=== PATIENT | male | born 1985 | race Caucasian/White ===

== ENCOUNTER 2018-02-01 14:35 | Emergency (ER) | payer OTHER, SELFPAY ==
[2018-02-01 14:46] VITALS: BP 129/80; PULSE 83; RESP 18; TEMP 36.6; O2SAT 99; BMI 33.2
--- NOTE | 2018-02-01 15:08 | ED.WOUNDLAC ---
HPI - Wound/Laceration <CHUNG Manning - Last Filed: 02/01/18 21:18> General Chief Complaint: Wound/Laceration Stated Complaint: HAND STABBED WITH FIBERGLASS Time Seen by Provider: 02/01/18 15:15 Source: patient Mode of arrival: ambulatory Limitations: no limitations History of Present Illness HPI narrative: 32-year-old healthy male that is a nonsmoker here for complaint of having puncture to his right palm yesterday. He states that a thin piece of fiberglass punctured his right palm area He believes that he got the fiberglass out. He states that his tetanus is up-to-date. He reports reports full range of motion of the right hand. He reports mild tenderness to the area today. He denies any other injuries or concerns at this time. Review of Systems <CHUNG Manning - Last Filed: 02/01/18 21:18> Constitutional Denies chills, Denies fever(s), Denies lethargy and Denies weakness Eyes Denies change in vision, Denies eye discharge, Denies irritation and Denies loss of vision Cardiovascular Denies chest pain, Denies irregular heart rhythm, Denies lightheadedness, Denies palpitations, Denies dyspnea, Denies dyspnea on exertion and Denies orthopnea Respiratory Denies cough, Denies dyspnea, Denies dyspnea on exertion and Denies wheezing Gastrointestinal Gastrointestinal: Denies abdominal pain, Denies change in bowel habits, Denies diarrhea, Denies nausea and Denies vomiting Genitourinary Denies hematuria, Denies flank pain, Denies urinary incontinence and Denies urinary urgency Musculoskeletal Comments: Puncture a to right palm by piece of fibrillar Integumentary/Breasts Denies pruritus, Denies erythema, Denies rash and Denies wounds Neurologic Denies confusion, Denies loss of vision and Denies weakness Psychiatric Denies anxiety, Denies confusion, Denies depression, Denies homicidal ideation and Denies suicidal ideation Endocrine Denies palpitations Allergic/Immunologic Denies wheezing Exam <CHUNG Manning - Last Filed: 02/01/18 21:18> Initial Vital Signs Initial Vital Signs: Vital Signs Temperature 97.8 F 02/01/18 14:46 Pulse Rate 83 02/01/18 14:46 Respiratory Rate 18 02/01/18 14:46 Blood Pressure 129/80 02/01/18 14:46 Pulse Oximetry 99 02/01/18 14:46 Const General: cooperative and well developed Nutritional Appearance: well nourished Orientation: alert, awake, oriented x3 and not confused HENME Mouth: oral mucosae normal and moist mucous membranes Eyes Conjunctivae: conjunctivae normal Sclera: sclerae normal Pupils: PERRL EOM: EOM intact bilaterally Resp Effort & Inspection: normal respiratory effort, able to speak in complete sentences, no respiratory distress and no use of accessory muscles Auscultation: clear to auscultation bilaterally, no rales, no rhonchi and no wheezes Cardio Rate: regular rate Rhythm: regular rhythm Heart Sounds: no click, no gallops, no murmurs and no rubs Pulses: normal peripheral pulses Skin General: no rashes or lesions noted, No jaundice and No petechiae Neuro General: alert, oriented x3, gait normal and no focal motor deficits Speech: speech normal Extrem Other: small approximately 3 mm circular red area to the right palm area Just proximal to the right thumb. No surrounding erythema. No swelling. distal sensation is intact. Full range of motion of the right hand. No foreign body appreciated. Distal cap refill less than 2 sec. <Deanna Taylor DO - Last Filed: 02/02/18 08:27> Initial Vital Signs Initial Vital Signs: Vital Signs Temperature 97.8 F 02/01/18 14:46 Pulse Rate 83 02/01/18 14:46 Respiratory Rate 18 02/01/18 14:46 Blood Pressure 129/80 02/01/18 14:46 Pulse Oximetry 99 02/01/18 14:46 Course <CHUNG Manning - Last Filed: 02/01/18 21:18> Orders Ordered: ED Orders 02/01/18 15:15 XR hand RT min 3V Stat Vital Signs - 8 hr 02/01/18 14:46 02/01/18 16:48 Temperature 97.8 F Pulse Rate 83 88 Respiratory Rate 18 14 Blood Pressure 129/80 Blood Pressure [Right Arm] 120/78 Pulse Oximetry 99 96 <Deanna Taylor DO - Last Filed: 02/02/18 08:27> Orders Ordered: ED Orders 02/01/18 15:15 XR hand RT min 3V Stat Vital Signs - 8 hr 02/01/18 14:46 02/01/18 16:48 Temperature 97.8 F Pulse Rate 83 88 Respiratory Rate 18 14 Blood Pressure 129/80 Blood Pressure [Right Arm] 120/78 Pulse Oximetry 99 96 MDM - Wound/Laceration <CHUNG Manning - Last Filed: 02/01/18 21:18> Imaging Data Right hand : Radiologist's impression: [address] [address] XRay Report Signed Patient: DINA PADILLA RMR#: [id number] : 1985Acct:[id number] Age/Sex: 32 / MDate of Service: 02/01/18 Loc: ED Accession Number: [id number] Procedure: XR hand RT min 3V Ordering Provider: Mir Galarza PROCEDURE: XR HAND RT MIN 3V INDICATIONS: puncture right palmar area thin long fiberglass piece TECHNIQUE: 3 views of the hand(s) acquired. COMPARISON: None. FINDINGS: Bones: There is a 5 mm density projecting along the surface of the skin of the distal right middle finger. Trace curvilinear densities projecting along the index finger nail No fractures or dislocations. Carpal bones are normally aligned. No suspicious bony lesions. Soft tissues: No suspicious soft tissue calcifications. IMPRESSION: Possible foreign body projected along the dorsal aspect of the distal right middle finger measuring 5 mm. Differential includes age indeterminate cortical fracture fragment however no donor site is identified. Please correlate clinically. No radiopaque foreign body projecting in the palmar soft tissues. Dictated by: Harlan Taylor M.D. on 02/01/2018 at 15:53 Approved by: Harlan Taylor M.D. on 02/01/2018 at 15:56 [facility] Narrative Medical decision making narrative: x-ray the right hand was obtained was negative for any radiopaque bodies. No foreign bodies appreciated on exam. Patient has full range of motion no signs of infection. Patient states tetanus is up-to-date.Follow up with primary care provider later this week for re-evaluation. For any worsening symptoms return to the emergency room. Discharge Plan Departure Patient Disposition: Home Clinical Impression: Puncture wound of right palm Discharge Date/Time: 02/01/18 16:52 Interventions: ED Discharge Assessment Last Done: 02/01/18 16:51 Instructions: DI for Hand Injury Activity Restrictions/Additional Instructions: x-ray the right hand was obtained was negative for any foreign body seen. no signs of infection are appreciated on exam. Use [id number] Tylenol or Motrin as needed for any discomfort. Follow up with primary care provider later this week for re-evaluation. For any worsening symptoms return to the emergency room. Referrals: [facility] [Provider Group] <Deanna Taylor, - Last Filed: 02/02/18 08:27> Cosign ED Attending Constanceature Attestation: I was immediately available in the department for consultation. Documentation has been reviewed. I agree with assessment and plan.
--- NOTE | 2018-02-01 15:15 | DI.RAD.S_ITS ---
PROCEDURE: XR HAND RT MIN 3V INDICATIONS: puncture right palmar area thin long fiberglass piece TECHNIQUE: 3 views of the hand(s) acquired. COMPARISON: None. FINDINGS: Bones: There is a 5 mm density projecting along the surface of the skin of the distal right middle finger. Trace curvilinear densities projecting along the index finger nail No fractures or dislocations. Carpal bones are normally aligned. No suspicious bony lesions. Soft tissues: No suspicious soft tissue calcifications. IMPRESSION: Possible foreign body projected along the dorsal aspect of the distal right middle finger measuring 5 mm. Differential includes age indeterminate cortical fracture fragment however no donor site is identified. Please correlate clinically. No radiopaque foreign body projecting in the palmar soft tissues. Dictated by: Harlan Taylor M.D. on 02/01/2018 at 15:53 Approved by: Harlan Taylor M.D. on 02/01/2018 at 15:56
[2018-02-01 16:48] VITALS: BP 120/78; PULSE 88; RESP 14; O2SAT 96
== END 2018-02-01 16:52 | disposition home or self-care (01) ==
PROVIDERS: Emergency Provider Nurse Practitioner Family
DX: S61.431A Puncture wound without foreign body of right hand, initial encounter (principal); W26.9XXA Contact with unspecified sharp object(s), initial encounter
CPT/HCPCS: 73130; 99283

== ENCOUNTER 2018-02-05 18:28 | Emergency (ER) | payer OTHER, SELFPAY ==
[2018-02-05 18:32] VITALS: BP 120/78; PULSE 85; RESP 14; TEMP 36.3; O2SAT 98; BMI 32.6
--- NOTE | 2018-02-05 19:25 | DI.RAD.S_ITS ---
PROCEDURE: XR CHEST 2V INDICATIONS: soa, rt lower rib pain after workout TECHNIQUE: 2 views of the chest were acquired. COMPARISON: None. FINDINGS: Surgical changes and devices: None. Lungs and pleura: No pleural effusions or pneumothorax. Lungs are clear. Mediastinum: Mediastinal contours are normal. Heart size is normal. Bones and chest wall: No suspicious bony abnormalities. Soft tissues appear unremarkable. IMPRESSION: No acute cardiopulmonary disease process. Dictated by: Gabi Pearce MD, PhD on 02/05/2018 at 20:28 Approved by: Gabi Pearce MD, PhD on 02/05/2018 at 20:29
--- NOTE | 2018-02-05 19:33 | PC.NURSE ---
sudden rt lower chest/rib pain with can't take a full breath while doing pushups this AM, mildly improved since that time, tender to palp, lungs clear/equal, speaking in full sentences
--- NOTE | 2018-02-05 20:55 | ED_ITS ---
HPI - Chest Pain <ELIAN Rachel-BC - Last Filed: 02/05/18 21:32> General Chief Complaint: Chest Pain Stated Complaint: lungs hurt after doing [place] PRT Time Seen by Provider: 02/05/18 19:51 Source: patient Mode of arrival: ambulatory Limitations: no limitations History of Present Illness HPI narrative: Patient presents with chief complaint stating that his lungs hurt after doing pushups for [employer] PRT. He states he started having pain upon taking deep breaths after doing the pushups. He states it is right-sided in the lower part of his ribs. He denies any shortness of breath but states that it hurts to take a deep breath. He denies any substernal chest pain, lightheadedness, dizziness. He states this happened at 8:30 a.m. but he was able to come to the emergency department till now. He has not taken ibuprofen, Tylenol applied ice or heat. He states he is also concerned that his had a lung virus 5 ago when she is still feeling the effects of it so he wants to make sure he does not have it. He denies any cough, shortness of breath, hemoptysis, abdominal pain nausea vomiting or diarrhea. He denies any fever. Related Data Home Medications Medication Instructions Recorded Confirmed No Known Home Medications 02/05/18 02/05/18 Allergies Allergy/AdvReac Type Severity Reaction Status Date / Time No Known Drug Allergies Allergy Verified 02/05/18 18:34 Review of Systems <ELIAN Rachel- - Last Filed: 02/05/18 21:32> Review of Systems GENERAL: Denies chills, fatigue, malaise, fever, sweats. HEENT: Denies sinus pain, ear pain, sore throat, difficulty swallowing, dizziness. RESPIRATORY: See HPI CARDIOVASCULAR: Denies chest pain, palpitations, orthopnea, edema, GASTROINTESTINAL: Denies nausea, vomiting, abdominal pain, diarrhea, constipation, melena. : Denies dysuria, frequency, incontinence, hematuria, urinary retention. MUSCULOSKELETAL: denies weakness, joint pain, or bony pain SKIN: Denies rash, skin lesions, or other NEUROLOGIC: Denies weakness, headache, numbness, change in speech, confusion, seizures, incoordination. PSYCHIATRIC: No concerning psychosocial issues. 12 point review of systems is negative except for those stated above Exam <LEAH Rachel - Last Filed: 02/05/18 21:32> Narrative Exam Narrative: GENERAL: This is a well-nourished, well-developed patient, sitting on stretcher HEAD: Atraumatic. Normocephalic. No temporal or scalp tenderness. EYES: Pupils equal round and reactive. Extraocular motions intact. No scleral icterus. No injection or drainage. ENT: Nose without bleeding, purulent drainage or septal hematoma. Throat without erythema, tonsillar hypertrophy or exudate. Uvula midline. Airway patent. NECK: Trachea midline. No JVD or lymphadenopathy. Supple, nontender, no meningeal signs. CARDIOVASCULAR: Regular rate and rhythm without murmurs, gallops, or rubs. RESPIRATORY: Clear to auscultation. Breath sounds equal bilaterally. No wheezes , rales, or rhonchi. No increased respiratory effort. No cough on exam. No accessory muscle use. Patient denies pain on anterior posterior chest wall compression. He complains of pain on lateral chest wall compression and 8 lower ribs. Pain to palpation right lower ribs. GASTROINTESTINAL: Abdomen soft, non-tender, nondistended. No hepato-splenomegaly , or palpable masses. No guarding. EXTREMITIES: No clubbing, cyanosis, or edema. No joint tenderness, effusion, or edema noted. BACK: Nontender without deformity or crepitance. No flank tenderness. NEURO: AOx3. SKIN: No rash or erythema. Initial Vital Signs Initial Vital Signs: Vital Signs Temperature 97.4 F L 02/05/18 18:32 Pulse Rate 85 02/05/18 18:32 Respiratory Rate 14 02/05/18 18:32 Blood Pressure 120/78 02/05/18 18:32 Pulse Oximetry 98 02/05/18 18:32 <Ephraim Fischer DO - Last Filed: 02/05/18 22:46> Initial Vital Signs Initial Vital Signs: Vital Signs Temperature 97.4 F L 02/05/18 18:32 Pulse Rate 85 02/05/18 18:32 Respiratory Rate 14 02/05/18 18:32 Blood Pressure 120/78 02/05/18 18:32 Pulse Oximetry 98 02/05/18 18:32 Course <LEAH Rachel - Last Filed: 02/05/18 21:32> Course Narrative: I offered the patient Toradol, ibuprofen or Tylenol the patient declined. I offered to do lab work in a full cardiac rule out, but he declined. Orders Ordered: ED Orders 02/05/18 19:25 Chest [XR chest 2V] Stat Vital Signs - 8 hr 02/05/18 18:32 Temperature 97.4 F L Pulse Rate 85 Respiratory Rate 14 Blood Pressure 120/78 Pulse Oximetry 98 <Ephraim Fischer DO - Last Filed: 02/05/18 22:46> Orders Ordered: ED Orders 02/05/18 19:25 Chest [XR chest 2V] Stat Vital Signs - 8 hr 02/05/18 18:32 Temperature 97.4 F L Pulse Rate 85 Respiratory Rate 14 Blood Pressure 120/78 Pulse Oximetry 98 MDM - Chest Pain <LEAH Rachel - Last Filed: 02/05/18 21:32> Imaging Data Chest x-ray: Radiologist's impression: [address] [address] XRay Report Signed Patient: DINA PADILLA RMR#: [id number] : 1985Acct:[id number] Age/Sex: 32 / MDate of Service: 02/05/18 Loc: ED Accession Number: [id number] Procedure: XR chest 2V Ordering Provider: Birgit Traylor PROCEDURE: XR CHEST 2V INDICATIONS: soa, rt lower rib pain after workout TECHNIQUE: 2 views of the chest were acquired. COMPARISON: None. FINDINGS: Surgical changes and devices: None. Lungs and pleura: No pleural effusions or pneumothorax. Lungs are clear. Mediastinum: Mediastinal contours are normal. Heart size is normal. Bones and chest wall: No suspicious bony abnormalities. Soft tissues appear unremarkable. IMPRESSION: No acute cardiopulmonary disease process. Dictated by: Gabi Pearce MD, PhD on 02/05/2018 at 20:28 Approved by: Gabi Pearce MD, PhD on 02/05/2018 at 20:29 [facility] Narrative Medical decision making narrative: Patient presents with chief complaint of right lower ?lung pain? upon doing pushups. He has chest wall pain. He declined pain medications in Toradol in the emergency department several times. His x-ray is benign. I urged him to use conservative measures including heat , ice, [id number] pain medication as he did, able and willing. Encouraged to follow up with primary care provider for new or worsening symptoms or come back to emergency department for any acute concerns. Discharge Plan Departure Patient Disposition: Home Clinical Impression: Acute chest wall pain Discharge Date/Time: 02/05/18 21:00 Interventions: ED Discharge Assessment Last Done: 02/05/18 21:41 Instructions: DI for Atypical Chest Pain Activity Restrictions/Additional Instructions: Your chest pain does not appear cardiac. Your x-ray came back normal. I encourage you to take [id number] pain medication as needed and able. He can try ice or heat for the pain. Please continue to take deep breaths so that you do not developed a pneumonia. Please follow up with her primary care provider if needed. Prescriptions: No Action No Known Home Medications RF: 0 Referrals: [facility] [Outside] <Ephraim Fischer DO - Last Filed: 02/05/18 22:46> [facility] ED Attending Herminio Attestation: I was available for consultation during this patient's emergency department encounter
== END 2018-02-05 21:00 | disposition home or self-care (01) ==
PROVIDERS: Emergency Provider Nurse Practitioner Family
DX: R07.89 Other chest pain (principal)
CPT/HCPCS: 71046; 99282; 99283

== ENCOUNTER 2019-03-21 10:52 | Emergency (ER) | payer OTHER, SELFPAY ==
[2019-03-21 11:05] VITALS: BP 118/78; PULSE 72; RESP 12; TEMP 36.7; O2SAT 99
--- NOTE | 2019-03-21 11:12 | ED.LOWEXIN ---
HPI - Extremity Injury (Lower) General Chief Complaint: Extremity Injury, Lower Stated Complaint: Left big toe pain x2 weeks Time Seen by Provider: 03/21/19 11:00 Source: patient Mode of arrival: Ambulatory Limitations: no limitations History of Present Illness HPI Narrative: 33M nonsmoker with noncontributory medical history presents with a chief complaint of left great toe pain for 2 weeks. He states he smashed it while working 2 weeks ago, but not a very severe smash, very typical of other smashes. He complains that every few days he develops pain and swelling along the edge of his nail and he is able to express pus from this painful swollen area. He denies any worsening of symptoms but complains that it is recurrence and becoming annoying. He denies any fever chills. He has not taken any antibiotics and has had no x-rays thus far. His pain is worse with ambulation and improves with rest MD complaint: foot injury Injury: Left: toes Type of Injury: blunt Place: work Severity: mild Relieving factors: nothing Context: direct blow Other symptoms: none Related Data Previous Rx's Medication Instructions Recorded doxycycline hyclate 100 mg PO BID #20 tab 03/21/19 Allergies Allergy/AdvReac Type Severity Reaction Status Date / Time No Known Drug Allergies Allergy Verified 02/05/18 18:34 Review of Systems Constitutional Constitutional: Denies chills, Denies fatigue, Denies fever(s), Denies frequent falls, Denies lethargy and Denies weakness Eyes Eyes: Denies change in vision, Denies eye discharge, Denies irritation and Denies loss of vision ENT Ears, Nose, Mouth, and Throat: Denies change in voice, Denies dizziness, Denies neck pain, Denies sore throat and Denies throat swelling Cardiovascular Cardiovascular: Denies chest pain, Denies irregular heart rhythm, Denies lightheadedness, Denies palpitations, Denies dyspnea, Denies dyspnea on exertion and Denies orthopnea Respiratory Respiratory: Denies cough, Denies dyspnea, Denies dyspnea on exertion and Denies wheezing Gastrointestinal Gastrointestinal: Denies abdominal pain, Denies change in bowel habits, Denies diarrhea, Denies nausea and Denies vomiting Genitourinary Genitourinary: Denies hematuria, Denies flank pain, Denies urinary incontinence and Denies urinary urgency Musculoskeletal Musculoskeletal: Denies back pain, Reports joint swelling, Reports limited range of motion, Denies muscle weakness, Denies neck pain, Denies numbness and Denies tingling Integumentary/Breasts Skin/Breast: Denies pruritus, Denies erythema, Denies rash and Denies wounds Neurologic Neurologic: Denies behavioral changes, Denies confusion, Denies dizziness, Denies frequent falls, Denies loss of vision, Denies numbness, Denies tingling and Denies weakness Psychiatric Psychiatric: Denies anxiety, Denies behavioral changes, Denies confusion, Denies depression, Denies homicidal ideation and Denies suicidal ideation Endocrine Endocrine: Denies fatigue, Denies flushing and Denies palpitations Hematologic/Lymphatic Hematologic/Lymphatic: Denies easy bruising Allergic/Immunologic Allergic/Immunologic: Denies urticaria, Denies throat swelling and Denies wheezing Patient History Social History Smoking Status: Never smoker alcohol intake frequency: holidays/special occasions only Substance Use Type: does not use Exam Narrative Exam Narrative: GEN: AOx3 and in mild distress EYES: Pupils are equal, round, and reactive to light and accommodation. Extraoccular muscles are intact bilaterally. There is no subconjunctival hemorrhage or exudate. CHEST: Lungs are clear to auscultation bilaterally and free of wheezes, rales, or rhonchi. Heart rate is regular rhythm, there are no murmurs, clicks, rubs, or gallops. There is no chest wall tenderness. ABD: Abdomen is soft and nontender. There is no guarding or rebound. Bowel sounds are normal in all 4 quadrants. There is no mass or organomegaly. EXT: Full painless ROM of all extremities with no loss of sensation or strength. SKIN: paronychia or L great toe. No ongoing fluctuance or drainage. Initial Vital Signs Initial Vital Signs: Vital Signs Temperature 98.1 F 03/21/19 11:05 Pulse Rate 72 03/21/19 11:05 Respiratory Rate 12 03/21/19 11:05 Blood Pressure 118/78 03/21/19 11:05 Pulse Oximetry 99 03/21/19 11:05 Course Orders Ordered: ED Orders 03/21/19 11:16 XR toe LT min 2V Stat Vital Signs Vital signs: Vital Signs - 8 hr 03/21/19 11:05 03/21/19 12:03 Temperature 98.1 F Pulse Rate 72 79 Respiratory Rate 12 18 Blood Pressure 118/78 Pulse Oximetry 99 98 MDM - Extremity Injury (Lower) Imaging Data Toe Xray: Radiologist's impression: [address] [address] XRay Report Signed Patient: DINA PADILLA RMR#: [id number] : 1985Acct:[id number] Age/Sex: 33 / MDate of Service: 03/21/19 Loc: ED Accession Number: [id number] Procedure: XR toe LT min 2V Ordering Provider: Alexandre Gamboa D.O. PROCEDURE: XR TOE LT MIN 2V INDICATIONS: crush injury TECHNIQUE: 3 views of the left great toe were obtained. COMPARISON: None. FINDINGS: Bones: No fractures or dislocations. No suspicious bony lesions. A tattoo as navicular is present. Mild degenerative changes are noted involving the 1st metatarsophalangeal joint without associated hallux valgus. Soft tissues: No suspicious soft tissue densities. No unexpected radio opaque foreign bodies. Soft tissue swelling of the great toe appears to be present. IMPRESSION: No acute fractures of the great toe. Dictated by: Fortino Grace M.D. on 03/21/2019 at 10:34 Approved by: Fortino Grace M.D. on 03/21/2019 at 10:35 Discharge Plan Departure Patient Disposition: Home Clinical Impression: Paronychia of great toe of left foot Discharge Date/Time: 03/21/19 12:04 Instructions: DI for Paronychia Activity Restrictions/Additional Instructions: *You have been diagnosed with [chronic left great toe paronychia and contusion] *What to do: *Take medications as directed: Doxycycline 100 mg p.o. b.i.d. times 10 days. Also consider soaking your left foot in warm water with Epson salts 1-2 times daily *Follow up with your primary care provider in 2-3 days, call for an appointment. Let them know you were seen in the Emergency Department and that we ask that you be seen in follow up *Return to ER if you should have any new, worsening or concerning symptoms Prescriptions: New doxycycline hyclate 100 mg tablet 100 mg PO BID Qty: 20 RF: 0
--- NOTE | 2019-03-21 11:16 | DI.RAD.S_ITS ---
PROCEDURE: XR TOE LT MIN 2V INDICATIONS: crush injury TECHNIQUE: 3 views of the left great toe were obtained. COMPARISON: None. FINDINGS: Bones: No fractures or dislocations. No suspicious bony lesions. A tattoo as navicular is present. Mild degenerative changes are noted involving the 1st metatarsophalangeal joint without associated hallux valgus. Soft tissues: No suspicious soft tissue densities. No unexpected radio opaque foreign bodies. Soft tissue swelling of the great toe appears to be present. IMPRESSION: No acute fractures of the great toe. Dictated by: Fortino Grace M.D. on 03/21/2019 at 10:34 Approved by: Fortino Grace M.D. on 03/21/2019 at 10:35
[2019-03-21 12:03] VITALS: PULSE 79; RESP 18; O2SAT 98
== END 2019-03-21 12:04 | disposition home or self-care (01) ==
PROVIDERS: Emergency Provider Emergency Medicine
DX: L03.032 Cellulitis of left toe (principal); S97.112A Crushing injury of left great toe, initial encounter
CPT/HCPCS: 73660; 99282; 99283

== ENCOUNTER 2019-07-09 15:39 | Emergency (ER) | payer OTHER, SELFPAY ==
[2019-07-09 15:47] VITALS: BP 133/68; PULSE 97; RESP 20; TEMP 38; O2SAT 97; BMI 34.9
--- NOTE | 2019-07-09 15:59 | DI.RAD.S_ITS ---
PROCEDURE: XR CHEST 2V INDICATIONS: cough TECHNIQUE: 2 views of the chest were acquired. COMPARISON: [facility], CR, XR CHEST 2V, 02/05/2018, 19:02. FINDINGS: Surgical changes and devices: None. Lungs and pleura: Lungs are clear. No pleural effusions or pneumothorax. Mediastinum: Mediastinal contours are normal. Heart size is normal. Bones and chest wall: No suspicious bony abnormalities. Soft tissues appear unremarkable. IMPRESSION: No acute cardiopulmonary pathology. Dictated by: Ang Blount M.D. on 07/09/2019 at 16:12 Approved by: Ang Blount M.D. on 07/09/2019 at 16:19
--- NOTE | 2019-07-09 16:37 | ED_ITS ---
HPI - SOB/Dyspnea <CHUNG Martin - Last Filed: 07/09/19 21:00> General Chief Complaint: Shortness of Breath/Dyspnea Stated Complaint: vomiting, pain all over, fever Time Seen by Provider: 07/09/19 16:09 Source: patient Mode of arrival: Ambulatory History of Present Illness HPI Narrative: 34 yo male presents to the emergency department for dry cough, shortness of breath, rhinorrhea, sore throat, body aches, and fevers of 101F that started last night. He denies any history of asthma or COPD. He states a shortness of breath and reports he has some right lower rib pain that is a dull aching pain that is worse when he coughs. Patient also reports he had a few episodes of nausea and vomiting. He last vomited around 1:00 p.m. this evening and no longer feels nauseated. He has been able to drink fluids without difficulty. Patient denies any abdominal pain, chest pain (other than right lower rib pain), dizziness, vision changes, diarrhea, or vomiting at this time. Patient states he has taken 2000mg of Tylenol today which has reduced his fever. He has not taken any ibuprofen or cold medication. Related Data Home Medications Medication Instructions Recorded Confirmed atomoxetine 80 mg PO DAILY 07/09/19 Allergies Allergy/AdvReac Type Severity Reaction Status Date / Time No Known Drug Allergies Allergy Verified 02/05/18 18:34 Review of Systems <CHUNG Martin - Last Filed: 07/09/19 21:00> Review of Systems Narrative: REVIEW OF SYSTEMS: GENERAL: Denies fevers. HENT: No head trauma or hearing loss. EYES: No loss of vision, double vision, eye pain, irritation or discharge. CARDIOVASCULAR: No chest pain or syncope. RESPIRATORY: Reports cough, see HPI. GASTROINTESTINAL: No nausea, vomiting, diarrhea, or constipation. MUSCULOSKELETAL: No weakness or injury. INTEGUMENTARY: No rash, lesions, or pruritus. NEURO: No memory loss, or confusion. Patient History <CHUNG Martin - Last Filed: 07/09/19 21:00> Medical History No significant medical problems (Acute) Social History Smoking Status: Never smoker Smoking Status: Never smoker alcohol intake frequency: holidays/special occasions only Substance Use Type: does not use Exam <CHUNG Martin - Last Filed: 07/09/19 21:00> Initial Vital Signs Initial Vital Signs: Vital Signs Temperature 100.4 F H 07/09/19 15:47 Pulse Rate 97 H 07/09/19 15:47 Respiratory Rate 20 07/09/19 15:47 Blood Pressure 133/68 07/09/19 15:47 Pulse Oximetry 97 07/09/19 15:47 PHYSICAL EXAMINATION: GENERAL: Well groomed, alert, and cooperative. Answers questions promptly and appropriately. Vital signs noted. HENT: Normocephalic, atraumatic. Ear canals patent. TMs intact without mucus or erythema. Oropharynx with slight erythema, postnasal drip noted. Tonsils are not present. EYES: Conjunctiva pink, sclera white, no periorbital swelling. No discharge. CHEST: Normal to inspection and without deformities. CARDIOVASCULAR: S1 and S2 sounds normal. Regular rate and rhythm, no murmurs, clicks, or bruits. RESPIRATORY: Normal respiratory rate, trachea midline, airway patent. No stridor, nasal flaring or accessory muscle use. Able to speak in full sentences. Lungs are clear in all arreguin without wheeze, rhonchi, or crackles. Occasional dry cough noted throughout examination. MUSCULOSKELETAL: Normal gait and coordination. Equal tone and mass bilaterally. EXTREMITIES: Moves all extremities. SKIN: Warm, dry, soft, appropriate color for ethnicity. No lesions, rashes, or wounds to visualized areas. NEURO: Alert and Oriented X 3. Good coordination. No ataxia or cognitive issues. PSYCH: Appropriate affect and mood. <Ephraim Fischer DO - Last Filed: 07/17/19 20:39> Initial Vital Signs Initial Vital Signs: Vital Signs Temperature 100.4 F H 07/09/19 15:47 Pulse Rate 97 H 07/09/19 15:47 Respiratory Rate 07/09/19 15:47 Blood Pressure 133/68 07/09/19 15:47 Pulse Oximetry 97 07/09/19 15:47 Course <CHUNG Martin - Last Filed: 07/09/19 21:00> Course Course Narrative: Patient reports improved symptoms such as body aches and decreased fevers shortness of breath after administration Toradol. Orders Ordered: Discontinued Medications Ketorolac Tromethamine (Toradol) 30 mg IM NOW ONE Stop: 07/09/19 16:37 Last Admin: 07/09/19 18:26 Dose: Not Given Documented by: SARAH Consultations Consultation #1: Patient staffed with Dr. Fischer. Vital Signs Vital signs: Vital Signs - 8 hr 07/09/19 15:47 07/09/19 17:36 07/09/19 18:26 Temperature 100.4 F H 98.7 F Pulse Rate 97 H 85 74 Respiratory Rate 20 12 Blood Pressure 133/68 126/65 Blood Pressure [Left Wrist] 125/67 Pulse Oximetry 97 97 97 <Ephraim Fischer DO - Last Filed: 07/17/19 20:39> Orders Ordered: Discontinued Medications Ketorolac Tromethamine (Toradol) 30 mg IM NOW ONE Stop: 07/09/19 16:37 Last Admin: 07/09/19 18:26 Dose: Not Given Documented by: SARAH Vital Signs Vital signs: Vital Signs - 8 hr 07/09/19 15:47 07/09/19 17:36 07/09/19 18:26 Temperature 100.4 F H 98.7 F Pulse Rate 97 H 85 74 Respiratory Rate 20 12 Blood Pressure 133/68 126/65 Blood Pressure [Left Wrist] 125/67 Pulse Oximetry 97 97 97 MDM - SOB/Dyspnea <CHUNG Martin - Last Filed: 07/09/19 21:00> Medical Records Attestation: I reviewed the patient's medical records. Lab Data Attestation: I reviewed the patient's lab results. Labs: Lab Results 07/09/19 Range/Units 16:03 Chlamy pneumoniae PCR Not detected (Not Detect) Adenovirus (PCR) Not detected (Not Detect) B.parapertussis DNA PCR Not detected (Not Detect) Coronavirus OC43 (PCR) Not detected (Not Detect) Coronavirus HKU1 (PCR) Not detected (Not Detect) Coronavirus 229E (PCR) Not detected (Not Detect) Coronavirus NL63 (PCR) Not detected (Not Detect) Human Metapneumovir PCR Not detected (Not Detect) Influenza Type A (PCR) Not detected (Not Detect) Influenza Type B (PCR) Not detected (Not Detect) M. pneumoniae (PCR) Not detected (Not Detect) Parainfluenza 1 (PCR) Not detected (Not Detect) Parainfluenza 2 (PCR) Not detected (Not Detect) Parainfluenza 3 (PCR) Not detected (Not Detect) Parainfluenza 4 (PCR) Not detected (Not Detect) RSV (PCR) Not detected (Not Detect) Entero/Rhino (PCR) Not detected (Not Detect) Imaging Data Chest x-ray: Radiologist's Impression: [address] [address] XRay Report Signed Patient: DINA PADILLA RMR#: [id number] : 1985Acct:[id number] Age/Sex: 34 / MDate of Service: 07/09/19 Loc: ED Accession Number: [id number] Procedure: XR chest 2V Ordering Provider: Ephraim Fischer D.O. PROCEDURE: XR CHEST 2V INDICATIONS: cough TECHNIQUE: 2 views of the chest were acquired. COMPARISON: [facility], , XR CHEST 2V, 02/05/2018, 19:02. FINDINGS: Surgical changes and devices: None. Lungs and pleura: Lungs are clear. No pleural effusions or pneumothorax. Mediastinum: Mediastinal contours are normal. Heart size is normal. Bones and chest wall: No suspicious bony abnormalities. Soft tissues appear unremarkable. IMPRESSION: No acute cardiopulmonary pathology. Dictated by: Ang Blount M.D. on 07/09/2019 at 16:12 Approved by: Ang Blount M.D. on 07/09/2019 at 16:19 [facility] Narrative Medical decision making narrative: This is a 34-year-old male presenting to the emergency department for upper respiratory tract symptoms and shortness of breath and fever. Chest x-ray is clear, respiratory panel is negative. Patient does not meet criteria for work COVID-19 testing, he denies any recent travel and is not ill enough to be admitted to the hospital. I suspect patient's symptoms are most likely viral in nature given his rhinorrhea, sore throat, and dry cough. This initially presented like influenza however, discussed with patient that there is a slight margin of area with our testing and he may still have influenza or an additional virus. Patient was offered nausea medication but declined as he is feeling better. He was able to eat and drink emergency department without any vomiting or abdominal pain. This is less likely acute abdominal etiology due to lack of abdominal pain, cessation of vomiting, and no diarrhea. Less likely cardiac in nature such as CHF due to lack of fluid is seen on chest x-ray, lung exam was benign, and patient has no significant risk factors. Less likely PE due to presence of fever and rhinorrhea. Patient was encouraged to follow up with his primary care provider in the next week for close observation and further evaluation. Very strict return precautions were given for new or worsening symptoms. He was encouraged to use NSAIDs and [id number] cold medications to help with symptoms. Patient agreed to plan of care verbalized understanding. She is very well-appearing and hemodynamically stable upon discharge, he was playing on his phone without any distress. <Ephraim Fischer, DO - Last Filed: 07/17/19 20:39> Lab Data Labs: Lab Results 07/09/19 Range/Units 16:03 Chlamy pneumoniae PCR Not detected (Not Detect) Adenovirus (PCR) Not detected (Not Detect) B.parapertussis DNA PCR Not detected (Not Detect) Coronavirus OC43 (PCR) Not detected (Not Detect) Coronavirus HKU1 (PCR) Not detected (Not Detect) Coronavirus 229E (PCR) Not detected (Not Detect) Coronavirus NL63 (PCR) Not detected (Not Detect) Human Metapneumovir PCR Not detected (Not Detect) Influenza Type A (PCR) Not detected (Not Detect) Influenza Type B (PCR) Not detected (Not Detect) M. pneumoniae (PCR) Not detected (Not Detect) Parainfluenza 1 (PCR) Not detected (Not Detect) Parainfluenza 2 (PCR) Not detected (Not Detect) Parainfluenza 3 (PCR) Not detected (Not Detect) Parainfluenza 4 (PCR) Not detected (Not Detect) RSV (PCR) Not detected (Not Detect) Entero/Rhino (PCR) Not detected (Not Detect) Discharge Plan Departure Patient Disposition: Home Clinical Impression: Upper respiratory virus Discharge Date/Time: 07/09/19 18:27 Instructions: DI for Viral Upper Respiratory Infection -- Adult Activity Restrictions/Additional Instructions: Thank you for entrusting me with your care today. As discussed, your chest x-ray was unremarkable, you were negative for influenza. Suspect her symptoms are most likely caused by a virus. Continue to take 500 to a 1000 mg of Tylenol every 8 hours and ibuprofen (400 to 600 mg) every 8 hours as well. You may use [id number] cold medication, do not take Tylenol with this as there is usually Tylenol in cold medication. Follow-up with your primary care provider in 1-2 weeks for further evaluation. Return to the emergency department for any new or worsening symptoms such as worsening shortness of breath, fevers that do not decreased with Tylenol and ibuprofen, severe chest pain, uncontrollable vomiting, or any other concerns. Prescriptions: No Action atomoxetine 40 mg capsule 80 mg PO DAILY RF: 0 <Ephraim Fischer DO - Last Filed: 07/17/19 20:39> Sign Out Provider Sign Out Attestation: Dr Fischer Co-Sign Statement: I was available for consultation during this patient's emergency department visit. This chart is signed by myself for administrative purposes only. I did not have direct contact with this patient during this visit. They were seen independently by the APC.
[2019-07-09 17:22] LABS: Adenovirus Not Detected (Not Detect); Bordetella pertussis Not Detected (Not Detect); Chlamydophila pneumoniae Not Detected (Not Detect); Coronavirus 229E Not Detected (Not Detect); Coronavirus HKU1 Not Detected (Not Detect); Coronavirus NL 63 Not Detected (Not Detect); Coronavirus OC43 Not Detected (Not Detect); Human Metapneumovirus Not Detected (Not Detect); Human Rhinovirus/Enterovirus Not Detected (Not Detect); Influenza A Not Detected (Not Detect); Influenza B Not Detected (Not Detect); Mycoplasma pneumoniae Not Detected (Not Detect); Parainfluenza Virus 1 Not Detected (Not Detect); Parainfluenza Virus 2 Not Detected (Not Detect); Parainfluenza Virus 3 Not Detected (Not Detect); Parainfluenza Virus 4 Not Detected (Not Detect); Respiratory Syncytial Virus Not Detected (Not Detect)
[2019-07-09 17:36] VITALS: BP 125/67; PULSE 85; RESP 12; O2SAT 97
[2019-07-09 18:26] VITALS: BP 126/65; PULSE 74; TEMP 37.1; O2SAT 97
== END 2019-07-09 18:27 | disposition home or self-care (01) ==
PROVIDERS: Emergency Medicine; Emergency Provider Nurse Practitioner
DX: J06.9 Acute upper respiratory infection, unspecified (principal)
CPT/HCPCS: 71046; 87633; 99281; 99283